=== PATIENT | male | born 1985 | race African-American/Black ===

== ENCOUNTER 2017-02-25 20:04 | Emergency (ER) | payer MEDICAID ==
[~2017-02-25] VITALS: Ht 188 cm; Wt 87.0 kg
[2017-02-26 09:10] VITALS: BP 136/82
== END 2017-02-26 10:01 | disposition home or self-care (01) ==
LOC: ER 21:07
DX: L02.01 Cutaneous abscess of face (principal)
CPT/HCPCS: 99283